=== PATIENT | male | born 1990 | race Caucasian/White ===

== ENCOUNTER 2016-10-10 11:09 | Emergency (ER) | payer MEDICAID ==
[~2016-10-10] VITALS: Ht 195.6 cm; Wt 113.4 kg
[2016-10-10 11:17] VITALS: BP 126/84
[2016-10-10 13:54] LABS: Basophils # (auto) 0 uL; Basophils % (auto) 0.5 % (0.0-2.0); CONDITION Y; Eosinophils # (auto) 0.1 uL; Eosinophils % (auto) 0.8 % (0.0-7.0); Hematocrit 50.2 % (41.0-53.0); Hemoglobin 17.2 g/dL (13.5-17.5); Lymphocytes # (auto) 1.8 uL; Lymphocytes % (auto) 28.4 % (10.0-50.0); Mean Corpuscular Hemoglobin 29.4 pg (28.0-32.0); Mean Corpuscular Hgb Conc. 34.4 g/dL (32.0-36.0); Mean Corpuscular Volume 85.5 fL (80.0-100.0); Mean Platelet Volume 8.6 fL (7.4-10.4); Monocytes # (auto) 0.5 uL; Monocytes % (auto) 7.8 % (0.0-12.0); Neutrophils % (auto) 62.5 % (37.0-80.0); Platelet Count (auto) 204 10^3/uL (140-450); Red Cell Distribution Width 15.4 % (11.6-16.0); White Blood Cell 6.4 10^3/uL (4.4-10.8)
[2016-10-10 14:18] LABS: Acetaminophen < 2.0 ug/mL (10-30); Salicylate < 1.7 mg/dL (2.8-20.0)
[2016-10-10 14:22] LABS: Albumin 4.6 g/dL (3.4-5.0); BUN/Creatinine Ratio 19.1; Bilirubin, Total 0.6 mg/dL (0.2-1.0); Calcium 9.3 mg/dL (8.5-10.1); Potassium 3.7 mmol/L (3.5-5.1); Total Protein 8.3 g/dL (6.4-8.2)
== END 2016-10-10 17:42 | disposition left against medical advice (07) ==
LOC: ER 11:09
DX: F41.9 Anxiety disorder, unspecified (principal); Z53.21 Procedure and treatment not carried out due to patient leaving prior to being seen by health care provider
CPT/HCPCS: 36415; 80053; 80329; 85025

== ENCOUNTER 2017-02-20 21:10 | Emergency (ER) | payer MEDICAID ==
[~2017-02-20] VITALS: Ht 195.6 cm; Wt 90.7 kg
[2017-02-20 21:50] VITALS: BP 114/72
[2017-02-20 22:47] LABS: Basophils # (auto) 0 uL; Basophils % (auto) 0.5 % (0.0-2.0); Eosinophils # (auto) 0.1 uL; Eosinophils % (auto) 0.7 % (0.0-7.0); Hematocrit 44.8 % (41.0-53.0); Hemoglobin 15.3 g/dL (13.5-17.5); Lymphocytes # (auto) 1.3 uL; Mean Corpuscular Hemoglobin 30.3 pg (28.0-32.0); Mean Corpuscular Hgb Conc. 34.2 g/dL (32.0-36.0); Mean Corpuscular Volume 88.7 fL (80.0-100.0); Monocytes # (auto) 0.8 uL; Monocytes % (auto) 7.6 % (0.0-12.0); Neutrophils # (auto) 8.5 uL; Neutrophils % (auto) 79.2 % (37.0-80.0); Platelet Count (auto) 201 10^3/uL (140-450); Red Blood Cells 5.05 10^6/uL (4.5-5.90); White Blood Cell 10.7 10^3/uL (4.4-10.8)
[2017-02-20 23:44] LABS: Alanine Aminotransferase 25 U/L (16-61); Albumin 4.4 g/dL (3.4-5.0); Anion Gap 8 (5-15); Aspartate Aminotransferase 28 U/L (15-37); BUN/Creatinine Ratio 17.3; Blood Alcohol < 3.0 mg/dL (0-5); Blood Urea Nitrogen 18 mg/dL (7-18); Calcium 8.9 mg/dL (8.5-10.1); Carbon Dioxide 24 mmol/L (21-32); Chloride 107 mmol/L (98-107); GFR African American 110 mL/min; GFR Non-African American 91 mL/min; Glucose 96 mg/dL (74-106); Magnesium 2.1 mg/dL (1.6-2.6); Potassium 3.8 mmol/L (3.5-5.1); Sodium 139 mmol/L (136-145)
[2017-02-20 23:47] LABS: Alkaline Phosphatase 59 U/L (45-117); Bilirubin, Total 0.8 mg/dL (0.2-1.0); Total Protein 8.2 g/dL (6.4-8.2)
[2017-02-21] MEDS ORDERED: SUCCINYLCHOLINE CHLORIDE 20 MG/ML 10ML VIAL IV ONE (03:00)
[2017-02-21] MEDS ORDERED: ETOMIDATE (2MG/ML) 20ML VIAL IV ONE (03:00)
== END 2017-02-21 01:01 | disposition left against medical advice (07) ==
LOC: ER 21:10
DX: R07.89 Other chest pain (principal); Z53.21 Procedure and treatment not carried out due to patient leaving prior to being seen by health care provider
CPT/HCPCS: 36415; 71010; 80053; 80320; 83735; 84484; 85025; 93005; J0330

== ENCOUNTER 2017-03-09 03:00 | Emergency (ER) | payer MEDICAID ==
[~2017-03-09] VITALS: Ht 190.5 cm; Wt 90.7 kg
[2017-03-09 03:10] VITALS: BP 103/67
== END 2017-03-09 04:14 | disposition left against medical advice (07) ==
LOC: ER 03:02
DX: F29 Unspecified psychosis not due to a substance or known physiological condition (principal); Z53.21 Procedure and treatment not carried out due to patient leaving prior to being seen by health care provider

== ENCOUNTER 2018-08-22 00:02 | Emergency (ER) | payer MEDICAID ==
[~2018-08-22] VITALS: Ht 195.6 cm; Wt 140.6 kg
[2018-08-22 01:44] LABS: Urine Bacteria NONE SEEN /hpf (None Seen); Urine Blood 1+ /uL (Negative); Urine Specific Gravity 1.023 (1.001-1.035); Urine WBC 2 /hpf (0 - 3)
[2018-08-22 02:34] LABS: Alcohol, Urine < 3.0 mg/dL (0-5); Amphetamine Screen, Urine NEGATIVE (NEGATIVE); Barbiturate Scree,Urine NEGATIVE (NEGATIVE); Benzodiazephine Screen, Urine NEGATIVE (NEGATIVE); Cannabinoid Screen, Urine POSITIVE (NEGATIVE); Cocaine Screen, Urine NEGATIVE (NEGATIVE); Opiate Scree,Urine NEGATIVE (NEGATIVE); Phencyclidine Screen, Urine NEGATIVE (NEGATIVE)
[2018-08-22] MEDS ORDERED: BENZTROPINE MESYLATE (1MG/ML) 2ML VIAL IM ONE (04:45)
[2018-08-22] MEDS ORDERED: BENZTROPINE MESY 0.5 MG TAB ONE (05:00)
[2018-08-22] MEDS ORDERED: BENZTROPINE MESY 0.5 MG TAB PO ONE (05:00)
[2018-08-22 05:38] VITALS: BP 118/82
== END 2018-08-22 05:45 | disposition home or self-care (01) ==
LOC: ER 00:02
DX: M62.838 Other muscle spasm (principal); F17.210 Nicotine dependence, cigarettes, uncomplicated; F12.10 Cannabis abuse, uncomplicated
CPT/HCPCS: 80307; 81001

== ENCOUNTER 2018-11-09 19:45 | Emergency (ER) | payer MEDICAID ==
[~2018-11-09] VITALS: Ht 190.5 cm; Wt 113.4 kg
[2018-11-09 19:54] VITALS: BP 130/75
== END 2018-11-09 20:21 | disposition left against medical advice (07) ==
LOC: EDBD 19:45 → ER 19:49
DX: Z04.6 Encounter for general psychiatric examination, requested by authority (principal); Z53.21 Procedure and treatment not carried out due to patient leaving prior to being seen by health care provider

== ENCOUNTER 2019-01-17 11:22 | Emergency (ER) | payer MEDICAID ==
[~2019-01-17] VITALS: Ht 185.4 cm; Wt 122.5 kg
[2019-01-17 13:00] LABS: Basophils # (auto) 0.1 uL; Basophils % (auto) 1.6 % (0.0-2.0); Eosinophils # (auto) 0.1 uL; Eosinophils % (auto) 1.7 % (0.0-7.0); Hematocrit 45.4 % (41.0-53.0); Hemoglobin 15.6 g/dL (13.5-17.5); Lymphocytes # (auto) 1.4 uL; Lymphocytes % (auto) 27.1 % (10.0-50.0); Mean Corpuscular Hemoglobin 30.4 pg (28.0-32.0); Mean Corpuscular Hgb Conc. 34.4 g/dL (32.0-36.0); Mean Corpuscular Volume 88.3 fL (80.0-100.0); Monocytes # (auto) 0.4 uL; Monocytes % (auto) 8.5 % (0.0-12.0); Neutrophils # (auto) 3.2 uL; Neutrophils % (auto) 61.1 % (37.0-80.0); Nucleated Red Blood Cells % 0.1 %; Platelet Count (auto) 138 10^3/uL (140-450); Red Blood Cells 5.15 10^6/uL (4.5-5.90); Red Cell Distribution Width 13.7 % (11.8-14.3); White Blood Cell 5.2 10^3/uL (4.4-10.8)
[2019-01-17 13:14] LABS: Anion Gap 4 (5-15); BUN/Creatinine Ratio 13.6; Blood Alcohol < 3.0 mg/dL (0-5); Blood Urea Nitrogen 12 mg/dL (7-18); Calcium 8.7 mg/dL (8.5-10.1); Carbon Dioxide 29 mmol/L (21-32); Chloride 109 mmol/L (98-107); GFR African American 132 mL/min; GFR Non-African American 109 mL/min; Glucose 88 mg/dL (74-106); Potassium 3.9 mmol/L (3.5-5.1); Sodium 142 mmol/L (136-145)
[2019-01-17 14:38] LABS: Alcohol, Urine < 3.0 mg/dL (0-5); Amphetamine Screen, Urine NEGATIVE (NEGATIVE); Barbiturate Scree,Urine NEGATIVE (NEGATIVE); Benzodiazephine Screen, Urine NEGATIVE (NEGATIVE); Cannabinoid Screen, Urine POSITIVE (NEGATIVE); Cocaine Screen, Urine NEGATIVE (NEGATIVE); Opiate Scree,Urine NEGATIVE (NEGATIVE); Phencyclidine Screen, Urine NEGATIVE (NEGATIVE)
[2019-01-17] MEDS ORDERED: SODIUM CHLORIDE 0.9% 1,000 ML IV ONE (17:04)
[2019-01-17 18:00] VITALS: BP 113/56
== END 2019-01-17 19:25 | disposition home or self-care (01) ==
LOC: EDBD 11:22 → ER 11:22
DX: F31.9 Bipolar disorder, unspecified (principal); F41.9 Anxiety disorder, unspecified; F20.9 Schizophrenia, unspecified; F17.210 Nicotine dependence, cigarettes, uncomplicated; F12.10 Cannabis abuse, uncomplicated; F15.10 Other stimulant abuse, uncomplicated; Z59.0 Homelessness
CPT/HCPCS: 36415; 80048; 80307; 80320; 85025

== ENCOUNTER 2019-04-10 13:37 | Emergency (ER) | payer MEDICAID ==
[~2019-04-10] VITALS: Ht 195.6 cm; Wt 99.8 kg
[2019-04-10 14:59] LABS: Basophils # (auto) 0.1 uL; Basophils % (auto) 0.5 % (0.0-2.0); Eosinophils # (auto) 0 uL; Eosinophils % (auto) 0.2 % (0.0-7.0); Hematocrit 50.7 % (41.0-53.0); Lymphocytes # (auto) 1.3 uL; Lymphocytes % (auto) 11.4 % (10.0-50.0); Mean Corpuscular Hemoglobin 29.7 pg (28.0-32.0); Mean Corpuscular Hgb Conc. 33.5 g/dL (32.0-36.0); Mean Corpuscular Volume 88.6 fL (80.0-100.0); Monocytes # (auto) 0.6 uL; Monocytes % (auto) 4.9 % (0.0-12.0); Neutrophils # (auto) 9.7 uL; Platelet Count (auto) 179 10^3/uL (140-450); Red Blood Cells 5.72 10^6/uL (4.5-5.90); Red Cell Distribution Width 13.6 % (11.8-14.3); White Blood Cell 11.8 10^3/uL (4.4-10.8)
[2019-04-10 15:16] LABS: Anion Gap 6 (5-15); Blood Urea Nitrogen 12 mg/dL (7-18); Calcium 9.6 mg/dL (8.5-10.1); Carbon Dioxide 27 mmol/L (21-32); Chloride 103 mmol/L (98-107); Glucose 83 mg/dL (74-106); Potassium 3.9 mmol/L (3.5-5.1); Salicylate 2.1 mg/dL (2.8-20.0); Sodium 136 mmol/L (136-145)
[2019-04-10 15:17] LABS: Acetaminophen < 2.0 ug/mL (10-30)
[2019-04-10 15:18] LABS: Barbiturate Scree,Urine NEGATIVE (NEGATIVE); Benzodiazephine Screen, Urine NEGATIVE (NEGATIVE); Cannabinoid Screen, Urine POSITIVE (NEGATIVE); Cocaine Screen, Urine NEGATIVE (NEGATIVE); Opiate Scree,Urine NEGATIVE (NEGATIVE); Phencyclidine Screen, Urine NEGATIVE (NEGATIVE)
[2019-04-10 15:18] LABS: BUN/Creatinine Ratio 11.4; Blood Alcohol < 3.0 mg/dL (0-5); GFR African American 107 mL/min; GFR Non-African American 88 mL/min
[2019-04-10 15:26] LABS: Amphetamine Screen, Urine POSITIVE (NEGATIVE)
[2019-04-10] MEDS ORDERED: OLANZapine 5 MG TAB PO ONE (20:30)
[2019-04-10] MEDS ORDERED: LORazepam 0.5 MG TAB PO ONE (20:30)
[2019-04-12] MEDS ORDERED: LORazepam 0.5 MG TAB PO ONE (12:15)
[2019-04-14 08:00] VITALS: BP 134/89
== END 2019-04-14 15:41 | disposition home or self-care (01) ==
LOC: ER 13:37
DX: F31.9 Bipolar disorder, unspecified (principal); F41.9 Anxiety disorder, unspecified; R45.851 Suicidal ideations; F17.210 Nicotine dependence, cigarettes, uncomplicated; F12.10 Cannabis abuse, uncomplicated; F15.10 Other stimulant abuse, uncomplicated
CPT/HCPCS: 36415; 70450; 80048; 80307; 80320; 80329; 85025; 93005

== ENCOUNTER 2019-09-03 15:40 | Emergency (ER) | payer MEDICAID ==
[~2019-09-03] VITALS: Ht 195.6 cm; Wt 142.0 kg
[2019-09-03] MEDS ORDERED: SODIUM CHLORIDE 0.9% 1,000 ML IV ONE (17:12)
[2019-09-03 17:24] LABS: Eosinophils # (auto) 0 10 ^3/uL (0-0.8); Eosinophils % (auto) 0.5 % (0.0-7.0); Monocytes # (auto) 0.6 10 ^3/uL (0-1.3)
[2019-09-03 17:26] LABS: Basophils # (auto) 0.1 10 ^3/uL (0-0.2); Basophils % (auto) 0.7 % (0.0-2.0); Hematocrit 51.9 % (41.0-53.0); Hemoglobin 17.6 g/dL (13.5-17.5); Lymphocytes # (auto) 2.2 10 ^3/uL (0.4-5.4); Lymphocytes % (auto) 22.1 % (10.0-50.0); Mean Corpuscular Hemoglobin 29.7 pg (28.0-32.0); Mean Corpuscular Hgb Conc. 33.8 g/dL (32.0-36.0); Mean Corpuscular Volume 87.7 fL (80.0-100.0); Monocytes % (auto) 6.2 % (0.0-12.0); Neutrophils % (auto) 70.5 % (37.0-80.0); Nucleated Red Blood Cells % 0.3 %; Platelet Count (auto) 228 10^3/uL (140-450); Red Blood Cells 5.92 10^6/uL (4.5-5.90); Red Cell Distribution Width 13.7 % (11.8-14.3)
[2019-09-03 17:42] LABS: Albumin 4.7 g/dL (3.4-5.0); BUN/Creatinine Ratio 12.7; Calcium 9.7 mg/dL (8.5-10.1); Potassium 4.1 mmol/L (3.5-5.1)
[2019-09-03 17:45] LABS: Bilirubin, Total 0.7 mg/dL (0.2-1.0); Salicylate 2.9 mg/dL (2.8-20.0)
[2019-09-03 17:46] LABS: Acetaminophen < 2.0 ug/mL (10-30)
[2019-09-04 02:32] LABS: Urine Bacteria FEW /hpf (None Seen); Urine Blood Negative /uL (Negative); Urine Hyaline Cast FEW /lpf (0 - 2); Urine Mucus FEW (None Seen); Urine Specific Gravity 1.032 (1.001-1.035); Urine WBC <1 /hpf (0 - 3)
[2019-09-04 02:43] LABS: Amphetamine Screen, Urine POSITIVE (NEGATIVE); Barbiturate Scree,Urine NEGATIVE (NEGATIVE); Benzodiazephine Screen, Urine NEGATIVE (NEGATIVE); Cannabinoid Screen, Urine POSITIVE (NEGATIVE); Cocaine Screen, Urine NEGATIVE (NEGATIVE); Opiate Scree,Urine NEGATIVE (NEGATIVE); Phencyclidine Screen, Urine NEGATIVE (NEGATIVE)
[2019-09-04 06:09] VITALS: BP 103/58
--- NOTE | 2019-09-04 13:28 | NUR ---
ASSESSMENT SS CONSULT Per ss consult multiple complaints about living situation. Patient discharged home this morning prior to being assessed. Addendum: 09/04/19 at 1731 by No ESPARZA Amended: Links added.
== END 2019-09-04 08:34 | disposition home or self-care (01) ==
LOC: ER 15:40
DX: R45.851 Suicidal ideations (principal)
CPT/HCPCS: 36415; 80053; 80307; 80320; 80329; 81001; 85025; 99284; J7030; 93005

== ENCOUNTER 2019-09-11 17:24 | Emergency (ER) | payer MEDICAID ==
[~2019-09-11] VITALS: Ht 195.6 cm; Wt 142.0 kg
[2019-09-11 17:29] VITALS: BP 117/70
[2019-09-11 19:08] LABS: Acetaminophen < 2.0 ug/mL (10-30); Salicylate 2.4 mg/dL (2.8-20.0)
[2019-09-11 21:21] LABS: Amphetamine Screen, Urine POSITIVE (NEGATIVE); Barbiturate Scree,Urine NEGATIVE (NEGATIVE); Benzodiazephine Screen, Urine NEGATIVE (NEGATIVE); Cannabinoid Screen, Urine POSITIVE (NEGATIVE); Cocaine Screen, Urine NEGATIVE (NEGATIVE); Opiate Scree,Urine NEGATIVE (NEGATIVE); Phencyclidine Screen, Urine NEGATIVE (NEGATIVE)
== END 2019-09-12 05:41 | disposition left against medical advice (07) ==
LOC: ER 17:24
DX: R45.851 Suicidal ideations (principal); F17.210 Nicotine dependence, cigarettes, uncomplicated; F12.10 Cannabis abuse, uncomplicated; F32.9 Major depressive disorder, single episode, unspecified
CPT/HCPCS: 36415; 80307; 80320; 80329

== ENCOUNTER 2023-02-04 19:04 | Emergency (ER) | payer MEDICAID ==
[~2023-02-04] VITALS: Ht 195.6 cm; Wt 151.7 kg
[2023-02-04] MEDS ORDERED: ZOFR4T PO (19:24)
[2023-02-04 20:19] VITALS: BP 116/95
[2023-02-04 20:22] VITALS: PULSE 89; RESP 20; O2SAT 96
== END 2023-02-04 20:23 | disposition home or self-care (01) ==
LOC: ER 19:04
DX: B34.9 Viral infection, unspecified (principal); F17.210 Nicotine dependence, cigarettes, uncomplicated; F12.10 Cannabis abuse, uncomplicated; F15.10 Other stimulant abuse, uncomplicated
CPT/HCPCS: 71046

== ENCOUNTER 2023-09-10 03:43 | Emergency (ER) | payer MEDICAID ==
[~2023-09-10] VITALS: Ht 195.6 cm; Wt 150.0 kg
[~2023-09-10 03:43] MED LIST: ZOFR4T PO
[2023-09-10 03:52] VITALS: BP 133/85; PULSE 102; RESP 18; O2SAT 96
[2023-09-10 04:17] LABS: Urine Bacteria None Seen /hpf (None Seen)
[2023-09-10 04:32] LABS: Urine Blood Negative /uL (Negative); Urine Clarity Clear (Clear); Urine Color Light-Yellow (Yellow); Urine Protein, UAD Negative (Negative); Urine Urobilinogen Normal (Negative); Urine WBC <1 /hpf (0 - 3)
[2023-09-10 07:24] LABS: Amphetamine Screen, Urine Neg (NEGATIVE); Barbiturate Scree,Urine Neg (NEGATIVE); Benzodiazephine Screen, Urine Neg (NEGATIVE); Cocaine Screen, Urine Neg (NEGATIVE); Opiate Scree,Urine Neg (NEGATIVE); Phencyclidine Screen, Urine Neg (NEGATIVE)
[2023-09-10 07:25] LABS: Cannabinoid Screen, Urine Neg (NEGATIVE)
== END 2023-09-10 05:55 | disposition left against medical advice (07) ==
LOC: ER 03:43
DX: R30.9 Painful micturition, unspecified (principal); Z53.21 Procedure and treatment not carried out due to patient leaving prior to being seen by health care provider
CPT/HCPCS: 80307; 81001

== ENCOUNTER 2023-09-16 19:03 | Emergency (ER) | payer MEDICAID ==
[~2023-09-16] VITALS: Ht 195.6 cm; Wt 151.3 kg
[2023-09-16 20:54] LABS: Urine Bacteria None Seen /hpf (None Seen)
[2023-09-16 21:18] LABS: Urine Blood Negative /uL (Negative); Urine Clarity Clear (Clear); Urine Color Yellow (Yellow); Urine Protein, UAD Negative (Negative); Urine Specific Gravity 1.017 (1.001-1.035); Urine Urobilinogen Normal (Negative); Urine WBC 1 /hpf (0 - 3); Urine pH 5.5 (5.0-9.0)
[2023-09-16 21:36] LABS: Basophils # (auto) 0.1 10 ^3/uL (0-0.2); Basophils % (auto) 1.1 % (0.0-2.0); Eosinophils # (auto) 0.1 10 ^3/uL (0-0.8); Eosinophils % (auto) 1.3 % (0.0-7.0); Hematocrit 39.7 % (41.0-53.0); Lymphocytes # (auto) 2.7 10 ^3/uL (0.4-5.4); Lymphocytes % (auto) 27.7 % (10.0-50.0); Mean Corpuscular Hemoglobin 29.6 pg (28.0-32.0); Mean Corpuscular Hgb Conc. 35.4 g/dL (32.0-36.0); Mean Corpuscular Volume 83.6 fL (80.0-100.0); Monocytes # (auto) 0.7 10 ^3/uL (0-1.3); Monocytes % (auto) 6.8 % (0.0-12.0); Neutrophils # (auto) 6.2 10 ^3/uL (1.6-8.6); Neutrophils % (auto) 63.1 % (37.0-80.0); Red Blood Cells 4.75 10^6/uL (4.5-5.90); Red Cell Distribution Width 13.7 % (11.8-14.3); White Blood Cell 9.9 10^3/uL (4.4-10.8)
[2023-09-16 21:50] LABS: Alanine Aminotransferase 24 U/L (7-40); Albumin 4.2 g/dL (3.2-4.8); Alkaline Phosphatase 88 U/L (46-116); Anion Gap 9 (5-15); Aspartate Aminotransferase 19 U/L (13-40); BUN/Creatinine Ratio 9.2 (10.0-20.0); Bilirubin, Total 0.3 mg/dL (0.2-1.0); Blood Urea Nitrogen 9 mg/dL (9-23); Calcium 9.4 mg/dL (8.7-10.4); Carbon Dioxide 25 mmol/L (20-30); Chloride 106 mmol/L (98-107); Glucose 100 mg/dL (74-106); Potassium 3.7 mmol/L (3.5-5.1); Sodium 140 mmol/L (136-145); Total Protein 6.6 g/dL (5.7-8.2)
[2023-09-17 01:30] VITALS: BP 125/67; PULSE 76; RESP 16; TEMP 98.1; O2SAT 99
== END 2023-09-17 01:35 | disposition home or self-care (01) ==
LOC: ER 19:03
DX: E86.0 Dehydration (principal); K52.9 Noninfective gastroenteritis and colitis, unspecified; B34.9 Viral infection, unspecified; F17.210 Nicotine dependence, cigarettes, uncomplicated; F12.10 Cannabis abuse, uncomplicated; F15.10 Other stimulant abuse, uncomplicated; F41.9 Anxiety disorder, unspecified; F32.9 Major depressive disorder, single episode, unspecified
CPT/HCPCS: 36415; 80053; 81001; 85025

== ENCOUNTER 2023-11-06 21:54 | Emergency (ER) | payer MEDICAID ==
[~2023-11-06] VITALS: Ht 195.6 cm; Wt 150.0 kg
[2023-11-06] MEDS ORDERED: KETOROLAC TROMETH 60MG/2ML VIAL IM ONE (22:00)
[2023-11-06] MEDS ORDERED: HYDROcodone-ACET 10/325MG TAB PO ONE (22:00)
[2023-11-06 22:21] VITALS: BP 118/76; PULSE 92; RESP 16; O2SAT 96
== END 2023-11-07 02:05 | disposition left against medical advice (07) ==
LOC: EDUNIT# 21:54 → ER 21:54 → EDBD 21:54 → ER 11-07 02:05
DX: N20.0 Calculus of kidney (principal); F17.210 Nicotine dependence, cigarettes, uncomplicated; F12.10 Cannabis abuse, uncomplicated; F15.10 Other stimulant abuse, uncomplicated
CPT/HCPCS: 74176

== ENCOUNTER 2024-01-03 00:58 | Emergency (ER) | payer MEDICAID ==
[~2024-01-03] VITALS: Ht 195.6 cm; Wt 152.7 kg
[2024-01-03 01:58] VITALS: BP 115/59; PULSE 82; RESP 17; TEMP 97.7; O2SAT 96
[2024-01-03] MEDS ORDERED: METH-1181 PO (02:07)
[2024-01-03] MEDS ORDERED: IBUP-1456 PO (02:07)
--- NOTE | 2024-01-03 02:08 | ED.PDOC ---
Back pain HPI HPI Comments THIS IS A 33-YEAR-OLD MALE HOMELESS PATIENT PRESENTS TO THE ED CHIEF COMPLAINT LOW BACK PAIN. PATIENT STATES EARLIER TODAY HE WAS AT THE GYM WAS LIFTING WEIGHTS AND OVER LIFTED AND HURT HIS BILATERAL LOWER BACK. DESCRIBES PAIN SHARP SHOOTING INTO LEFT AND RIGHT GLUTE 10/10 PAIN. DENIES NUMBNESS OR WEAKNESS. DENIES LOSS OF BOWEL OR BLADDER CONTROL OR SADDLE ANESTHESIA. Chief Complaint: Back Pain Time Seen by MD: 01:04 Primary Care Provider: [facility] Reviewed Notes: Nurses Notes, Medications, Allergies Allergies: Coded Allergies: Haloperidol (Verified Allergy, Unknown, 11/11/23) Lurasidone (Verified Allergy, Unknown, 11/11/23) Valproic Acid (Verified Allergy, Unknown, 11/11/23) Home Meds Active Scripts Ondansetron Odt 4MG Tab (ZOFRAN PO) 4 Mg Tb, 4 MG PO Q8HP PRN for 5 Days, #15 TAB ODT TAB-DISSOLVE IN MOUTH, THEN SWALLOW Prov:TEJAS COLUNGA MD 02/04/23 Mode of Arrival: Ambulatory Past Medical History PAST MEDICAL HISTORY: Anxiety, Depression, Kidney Stones, Schizophrenia Surgical History: Denies all surgeries Family History Family History: Family hx of DM Social History Smoker: Cigarettes, Less Than 1 Pack/Day Alcohol: Occasionally Drugs: Marijuana, Methamphetamine Lives In: Home Constitutional: denies: chills, diaphoresis, fatigue, fever, malaise, sweats, weakness, others EENTM: denies: blurred vision, double vision, ear bleeding, ear discharge, ear drainage, ear pain, ear ringing, eye pain, eye redness, hearing loss, mouth pain, mouth swelling, nasal discharge, nose bleeding, nose congestion, nose pain, photophobia, tearing, throat pain, throat swelling, voice changes, others Respiratory: denies: cough, hemoptysis, orthopnea, SOB at rest, shortness of breath, SOB with excertion, stridor, wheezing, others Cardiovascular: denies: chest pain, dizzy spells, diaphoresis, Dyspnea on exertion, edema, irregular heart beat, left arm pain, lightheadedness, palpitations, PND, syncope, others Gastrointestinal: denies: abdomen distended, abdominal pain, blood streaked bowels, constipated, diarrhea, dysphagia, difficulty swallowing, hematemesis, melena, nausea, poor appetite, poor fluid intake, rectal bleeding, rectal pain, vomiting, others Genitourinary: denies: burning, dysuria, flank pain, frequency, hematuria, inco ntinence, penile discharge, penile sore, pain, testicle pain, testicle swelling, urgency, others Neurological: denies: dizziness, fainting, headache, left sided numbness, left sided weakness, numbness, paresthesia, pre-existing deficit, right sided numbness, right sided weakness, seizure, speech problems, tingling, tremors, weakness, others Musculoskeletal: reports: back pain; denies: gout, joint pain, joint swelling, muscle pain, muscle stiffness, neck pain, others Integumetry: denies: bruises, change in color, change in hair/nails, dryness, laceration, lesions, lumps, rash, wounds, others Allergic/Immunocompromised: denies: Difficulty Healing, Frequent Infections, Hives, Itching, others Hematologic/Lymphatic: denies: anemia, blood clots, easy bleeding, easy bruising, swollen glands, others Endocrine: denies: excessive hunger, excessive sweating, excessive thirst, excessive urination, flushing, intolerance to cold, intolerance to heat, unexplained weight gain, unexplained weight loss, others Psychiatric: denies: anxiety, bipolar disorder, depression, hopeless, panic disorder, schizophrenia, sleepless, suicidal, others Physical Exam General Appearance: No Apparent Distress, Normal HEENT: Pharynx Normal Neck: Full Range of Motion, Non-Tender Respiratory: Lungs Clear, No Respiratory Distress, Normal Breath Sounds Cardiovascular: No Murmur, Normal Peripheral Pulses, Regular Rate/Rhythm Breast Exam: Deferred Gastrointestinal: Non Tender, Soft Genitalia: Deferred Pelvic: Deferred Rectal: Deferred Extremities: Normal capillary refill, Normal inspection, Normal range of motion, Non-tender, No pedal edema Musculoskeletal : Location: Bilateral Extremity Location: Back (MILD TENDERNESS PALPATED OVER L1 THROUGH L5 PARASPINAL MUSCLES BILATERAL. NO TENDERNESS PALPATED OVER L1 THROUGH L5 LUMBAR SPINE WITHOUT CREPITUS, OR STEP-OFFS. NO NOTED ECCHYMOSIS, LESIONS OR ABRASIONS. NEGATIVE STRAIGHT LEG RAISE BILATERAL.) Apperance: Normal Neurologic: Alert, competitive intelligence manager II-XII nml as Tested, No Motor Deficits, Normal Affect, Normal Mood, No Sensory Deficits Cerebellar Function: Normal Reflexes: Normal Skin: Dry, Normal Color, Warm Lymphatic: No Adenopathy Was a procedure done? Was a procedure done?: No Back Pain Differential Dx Differential Diagnosis: Musculoskeletal Pain X-Ray, Labs, Meds, VS Vital Signs Date Time Temp Pulse Resp B/P (MAP) Pulse Ox O2 Delivery O2 Flow Rate FiO2 01/03/24 01:58 82 17 96 Room Air 01/03/24 01:58 97.7 82 17 115/59 (77) 96 97.7 01/03/24 01:05 97.7 88 17 101/65 (77) 96 X-Ray, Labs, Meds, VS Comment DURING PHYSICAL EXAM AND HPI PATIENT RATES PAIN 10/10 HOWEVER PATIENT WAS SLEEPING, WOULD NOT ANSWER QUESTIONS APPROPRIATELY, NOT COOPERATING. IBUPROFEN 800 MG GIVEN P.O.. ADVISED TO REST, INCREASE P.O. FLUIDS, AVOID HEAVY LIFTING. FOLLOW UP WITH PCP IN 2-3 DAYS NECESSARY ADVISED TO RETURN TO THE ER FOR INCREASING PAIN, NUMBNESS, WEAKNESS, LOSS OF BOWEL BLADDER CONTROL, OR SADDLE ANESTHESIA. PATIENT AGREES WITH DISCHARGE PLAN OF CARE. Time of 1ST Reevaluation: 02:06 Reevaluation 1ST: Improved Patient Education/Counseling: Diagnosis, Treatment, Prognosis, Need For Follow Up Family Education/Counseling: No Family Present Departure 1 Departure Time of Disposition: 02:06 Impression: Primary Impression: Lumbar sprain Qualified Codes: S33.5XXA - Sprain of ligaments of lumbar spine, initial encounter Disposition: HOME / SELF CARE / HOMELESS Condition: Stable e-Prescriptions Ibuprofen (Ibuprofen) 800 Mg Tab 1 TAB PO TID PRN for 5 Days, #15 TAB 1 Refill Prov: BOO SKINNER 01/03/24 Methocarbamol (Methocarbamol) 500 Mg Tab 1 TAB PO HS for 4 Days, #4 TAB Prov: BOO SIKNNER 01/03/24 Discharged With: Self Critical Care Note Critical Care Time?: No Stability Stability form required: BOO Trivedi Jan 03, 2024 02:07
[2024-01-03] MEDS: IBUPROFEN 800 MG TAB PO ONE (02:22)
== END 2024-01-03 02:27 | disposition home or self-care (01) ==
LOC: ER 00:58
DX: S33.5XXA Sprain of ligaments of lumbar spine, initial encounter (principal); F12.10 Cannabis abuse, uncomplicated; F15.10 Other stimulant abuse, uncomplicated; F20.9 Schizophrenia, unspecified; F17.210 Nicotine dependence, cigarettes, uncomplicated; Z59.00 Homelessness unspecified; Z87.442 Personal history of urinary calculi; Z88.6 Allergy status to analgesic agent; X50.0XXA Overexertion from strenuous movement or load, initial encounter; Y93.89 Activity, other specified; Y92.89 Other specified places as the place of occurrence of the external cause; Y99.8 Other external cause status

== ENCOUNTER 2024-01-23 21:47 | Emergency (ER) | payer MEDICAID ==
[~2024-01-23] VITALS: Ht 195.6 cm; Wt 144.9 kg
[~2024-01-23 21:47] MED LIST changes: +IBUP-1456 PO; +METH-1181 PO
[2024-01-23] MEDS ORDERED: KETOROLAC TROMETH 60MG/2ML VIAL IM ONE (22:00)
--- NOTE | 2024-01-23 22:02 | ED.PDOC ---
History of Present Illness HPI Comments 33-year-old male presents with a chief complaint of lower back pain s/p lifting weights earlier today. Patient states that he was lifting weights earlier today and as a result developed lower lumbar tenderness. Patient is able to ambulate and has no urinary symptoms, saddle anesthesia, or incontinence. Patient is homeless and schizophrenic. No other symptoms or modifying factors present at this time. Time Seen by MD: 21:57 Primary Care Provider: [facility] Reviewed Notes: Medications, Allergies Allergies: Coded Allergies: Haloperidol (Verified Allergy, Unknown, 11/11/23) Lurasidone (Verified Allergy, Unknown, 11/11/23) Valproic Acid (Verified Allergy, Unknown, 11/11/23) Home Meds Active Scripts Cyclobenzaprine Hcl (CYCLOBENZAPRINE HCL) 7.5 Mg Tab, 7.5 MG PO Q8HP PRN for 3 Days, #9 TAB Prov:SANDOVAL YEE MD 01/23/24 Ibuprofen Micronized (MOTRIN TABLET) 600 Mg Tb, 600 MG PO TID PRN, #40 TAB *Black box warning-NSAIDS can increase risk of [place] & hypertension, GI irritation, ulceration, bleed, perferation. Do not use post cardiac surgery. Use short duration/lowest effective dose. Prov:SANDOVAL YEE MD 01/23/24 Ibuprofen (Ibuprofen) 800 Mg Tab, 1 TAB PO TID PRN for 5 Days, #15 TAB 1 Refill Prov:BOO SKINNER [facility] 01/03/24 Methocarbamol (Methocarbamol) 500 Mg Tab, 1 TAB PO HS for 4 Days, #4 TAB Prov:BOO SKINNER 01/03/24 Ondansetron Odt 4MG Tab (ZOFRAN PO) 4 Mg Tb, 4 MG PO Q8HP PRN for 5 Days, #15 TAB ODT TAB-DISSOLVE IN MOUTH, THEN SWALLOW Prov:TEJAS COLUNGA MD 02/04/23 Information Source: Patient Mode of Arrival: Ambulatory Severity: Moderate Timing: Hours Duration: Since onset Prehospital treatment: None Past Medical History PAST MEDICAL HISTORY: Anxiety, Depression, Kidney Stones, Schizophrenia Surgical History: Denies all surgeries Family History Family History: Family hx of DM Social History Smoker: Cigarettes, Less Than 1 Pack/Day Alcohol: Occasionally Drugs: Marijuana, Methamphetamine Lives In: Home Constitutional: denies: chills, diaphoresis, fatigue, fever, malaise, sweats, weakness, others EENTM: denies: blurred vision, double vision, ear bleeding, ear discharge, ear drainage, ear pain, ear ringing, eye pain, eye redness, hearing loss, mouth pain, mouth swelling, nasal discharge, nose bleeding, nose congestion, nose pain, photophobia, tearing, throat pain, throat swelling, voice changes, others Respiratory: denies: cough, hemoptysis, orthopnea, SOB at rest, shortness of breath, SOB with excertion, stridor, wheezing, others Cardiovascular: denies: chest pain, dizzy spells, diaphoresis, Dyspnea on exertion, edema, irregular heart beat, left arm pain, lightheadedness, palpitations, PND, syncope, others Gastrointestinal: denies: abdomen distended, abdominal pain, blood streaked bowels, constipated, diarrhea, dysphagia, difficulty swallowing, hematemesis, melena, nausea, poor appetite, poor fluid intake, rectal bleeding, rectal pain, vomiting, others Genitourinary: denies: burning, dysuria, flank pain, frequency, hematuria, incontinence, penile discharge, penile sore, pain, testicle pain, testicle swelling, urgency, others Neurological: denies: dizziness, fainting, headache, left sided numbness, left sided weakness, numbness, paresthesia, pre-existing deficit, right sided numbness, right sided weakness, seizure, speech problems, tingling, tremors, w eakness, others Musculoskeletal: reports: back pain; denies: gout, joint pain, joint swelling, muscle pain, muscle stiffness, neck pain, others Integumetry: denies: bruises, change in color, change in hair/nails, dryness, laceration, lesions, lumps, rash, wounds, others Allergic/Immunocompromised: denies: Difficulty Healing, Frequent Infections, Hives, Itching, others Hematologic/Lymphatic: denies: anemia, blood clots, easy bleeding, easy bruising, swollen glands, others Endocrine: denies: excessive hunger, excessive sweating, excessive thirst, excessive urination, flushing, intolerance to cold, intolerance to heat, unexplained weight gain, unexplained weight loss, others Psychiatric: denies: anxiety, bipolar disorder, depression, hopeless, panic disorder, schizophrenia, sleepless, suicidal, others All Other Systems: Reviewed and Negative Physical Exam General Appearance: No Apparent Distress, Normal HEENT: Normal ENT Inspection, Pharynx Normal, TMs Normal Neck: Full Range of Motion, Non-Tender, Normal, Normal Inspection Respiratory: Chest Non-Tender, Lungs Clear, No Accessory Muscle Use, No Respiratory Distress, Normal Breath Sounds Cardiovascular: No Edema, No JVD, No Murmur, No Gallop, Normal Peripheral Pulses, Regular Rate/Rhythm Breast Exam: Deferred Gastrointestinal: No Organomegaly, Non Tender, No Pulsatile Mass, Normal Bowel Sounds, Soft Genitalia: Deferred Pelvic: Deferred Rectal: Deferred Extremities: No calf tenderness, Normal capillary refill, Normal inspection, Normal range of motion, Non-tender, No pedal edema Musculoskeletal : Apperance: Normal Neurologic: Alert, buffet attendant II-XII nml as Tested, No Motor Deficits, Normal Affect, Normal Mood, No Sensory Deficits Cerebellar Function: Normal Reflexes: Normal Skin: Dry, Normal Color, Warm Lymphatic: No Adenopathy Was a procedure done? Was a procedure done?: No Differential Dx Considerations may include: compression fracture, lumbar muscle strain, herniated disk, sciatica, spinal lesions, renal colic X-Ray, Labs, Meds, VS Vital Signs Date Time Temp Pulse Resp B/P (MAP) Pulse Ox O2 Delivery O2 Flow Rate FiO2 01/23/24 22:07 97.7 83 18 112/68 (83) 96 Time of 1ST Reevaluation: 22:27 Reevaluation 1ST: Unchanged Time of 2ND Reevaluation: 22:27 Reevaluation 2ND: Improved Patient Education/Counseling: Diagnosis, Treatment, Prognosis, Need For Follow Up Family Education/Counseling: No Family Present Additional Information The following tests were ordered, and results were reviewed by me: X-Ray I reviewed and agreed with the following test results read by other providers: (xray) I discussed treatments and results with medical personnel pt has lumbar strain, without fractures, or ny neurologic symptoms. he will be prescribed flexeril and motrin and is stable to follow up with his doctor Departure 1 Departure Time of Disposition: 22:28 Impression: Primary Impression: Lumbar strain Qualified Codes: S39.012A - Strain of muscle, fascia and tendon of lower back, initial encounter Disposition: HOME / SELF CARE / HOMELESS Condition: Good e-Prescriptions Cyclobenzaprine Hcl (CYCLOBENZAPRINE HCL) 7.5 Mg Tab 7.5 MG PO Q8HP PRN for 3 Days, #9 TAB Prov: SANDOVAL YEE MD 01/23/24 Ibuprofen Micronized (MOTRIN TABLET) 600 Mg Tb 600 MG PO TID PRN, #40 TAB *Black box warning-NSAIDS can increase risk of [place] & hypertension, GI irritation, ulceration, bleed, perferation. Do not use post cardiac surgery. Use short duration/lowest effective dose. Prov: SANDOVAL YEE MD 01/23/24 Discharged With: Self Critical Care Note Critical Care Time?: No Stability Stability form required: No I personally scribed for SANDOVAL YEE MD ([email or web address]) on 01/23/24 at 22:02. Electronically submitted by Landen Granados ([email or web address]). SANDOVAL YEE MD Jan 23, 2024 22:02
[2024-01-23 22:07] VITALS: BP 112/68; PULSE 83; RESP 18; O2SAT 96
[2024-01-23] MEDS ORDERED: CYCL-838 PO (22:29)
[2024-01-23] MEDS ORDERED: IBU600T PO (22:29)
--- NOTE | 2024-01-23 22:38 | DVH ---
EXAMINATIONS: 3 views of the lumbar spine CLINICAL HISTORY: INJURY COMPARISON: Correlation made to abdomen/ pelvis CT dated 11/06/2023 Findings and impression: Mild lumbar dextroscoliotic curvature may be in part related to patient positioning and/or muscular s pasm. Otherwise, as visualized, no grossly displaced fractures or subluxations are evident. Vertebral body heights appear maintained. The sacroiliac joints are symmetric. If there is persistent clinical concern, CT may be considered to further evaluate.
== END 2024-01-23 23:59 | disposition home or self-care (01) ==
LOC: ER 21:47
DX: S39.012A Strain of muscle, fascia and tendon of lower back, initial encounter (principal); F17.210 Nicotine dependence, cigarettes, uncomplicated; F20.9 Schizophrenia, unspecified; Z59.00 Homelessness unspecified; X50.0XXA Overexertion from strenuous movement or load, initial encounter; Y93.89 Activity, other specified; Y92.89 Other specified places as the place of occurrence of the external cause; Y99.8 Other external cause status
CPT/HCPCS: 72110